=== PATIENT | female | born 1990 | race African-American/Black ===

== ENCOUNTER 2024-01-24 05:37 | Emergency (ER) | payer OTHER, SELFPAY ==
--- NOTE | ~2024-01-24 | XR_ITS ---
EXAMINATION: XR CHEST CLINICAL INFORMATION: Cough COMPARISON: None available. TECHNIQUE: 2 views of the chest were obtained. FINDINGS: No significant abnormality is noted involving the heart, lungs, mediastinum, bony thorax or soft tissues. XR/XR chest 2V IMPRESSION: Unremarkable examination.
[2024-01-24 05:38] VITALS: BP 128/68; PULSE 77; RESP 19; TEMP 36.8; O2SAT 99; BMI 38.4
[2024-01-24 06:01] LABS: IDNOW Serial# 08D9AD1C; Strep A Nucleic Acid Negative (Negative)
--- OUTSIDE RECORDS SUMMARY | 2024-01-24 06:21 | XMS_ITS | Continuity of Care Document ---
Author Organization [facility] Address [address] [place] [address]- Care Team Providers Care Dialysis Registered Nurse Name Role Phone Not on Staff, PCP Primary Care Physician Unavail able Encounter [facility] [place] Date(s): 06/19/20 - 08/19/[address] [address] Discharge Disposition: A-D/C Home Attending Physician: Ale Fields Admitting Physician: Ale Fields Referring Physician: Ale Fields Allergies, Adverse Reactions, Alerts Substance Reaction Severity Status NKA Active Immunizations Given and Recorded Vaccine Date Status Refusal Reason tetanus/diphtheria/pertussis, acel(Tdap) 01/14/14 Given Meningococcal Conjugate Vaccine 1 09/30/07 Given Hepatitis B Vaccine (old term) 08/08/04 Given Hepatitis B Vaccine (old term) 06/16/04 Given tetanus-diphtheria toxoids (Td) 04/08/02 Given 1Admin Note: menactra Medications ibuprofen 600 mg oral tablet 600 mg, 1, tablet, By Mouth, Every 6 hours, # 30 tablet, Refills 0, Tot. Refills 0, Maintenance, 01/09/18 23:08:52 EDT, Print Requisition Start Date: 01/09/18 Status: Ordered lidocaine 5% topical film 1 patch, Topically, Daily, remove patches after 12 hours, # 30 patch, 0 Refills, Maintenance, 06/14/20 23:10:00 EST, [facility]/pharmacy #[id number], Partial fill upon patient request if the prescription is for aschedule II opioid drug., 1 patch Topically Daily,x... Start Date: 06/14/20 Stop Date: 07/14/20 Status: Ordered omeprazole 20 mg oral delayed release tablet 1 tablet = 20 mg, By Mouth, Daily, # 14 tablet, 0 Refills, Maintenance, 07/11/20 23:36:00 EST, EC Tablet, [id number], Partial fill upon patient request if the prescription is for a schedule II opioid drug., 127, kg, 07/11/20 19:05:00 EST, Dry... Start Date: 07/11/20 Stop Date: 07/25/20 Status: Ordered Provera 10 mg oral tablet 10, mg, 1, tablet, By Mouth, Daily, 10, tablet, 0, 0, 09/30/07 14:12:26, Print RAGINI Number, [id number], Constant Indicator Start Date: 09/30/07 Stop Date: 10/10/07 Status: Ordered Zofran 4 mg oral tablet 1 tablet = 4 mg, By Mouth, Every 8 hours, # 12 tablet, 0 Refills, Maintenance, 07/11/20 23:35:00 EST, Tablet, [facility]/pharmacy #[id number], Partial fill upon patient request if the prescription is for a schedule II opioid drug., 127, kg, 07/11/20 19:05:00 EST,... Start Date: 07/11/20 Status: Ordered Problem List Condition Effective Dates Status Health Status Inform ant Anxiety and depression(Confirmed) Active Bipolar disorder(Confirmed) Active
--- OUTSIDE RECORDS SUMMARY | 2024-01-24 06:21 | XMS_ITS | Continuity of Care Document ---
Author Organization [facility] Address [address] [place] [address]- Care Team Providers Care Orchid Hand Name Role Phone Not on Staff, PCP Primary Care Physician Unavail able Encounter [facility] Date(s): 06/14/20 - 06/15/[address] [address]- Encounter Diagnosis Lumbar back pain(Final) - 06/15/20 Discharge Disposition: A-D/C Home Attending Physician: Kulwant Ramirez MD Admitting Physician: Kulwant Ramirez MD Referring Physician: Not on Staff, Referring MD Allergies, Adverse Reactions, Alerts Substance Reaction Severity Status NKA Active Immunizations Given and Recorded Vaccine Date Status Refusal Reason tetanus/diphtheria/pertussis, acel(Tdap) 01/14/14 Given Meningococcal Conjugate Vaccine 1 09/30/07 Given Hepatitis B Vaccine (old term) 08/08/04 Given Hepatitis B Vaccine (old term) 06/16/04 Given tetanus-diphtheria toxoids (Td) 04/08/02 Given 1Admin Note: menactra Medications acetaminophen 325 mg oral tablet 650 mg, 2, tablet, By Mouth, Every 4 hours, PRN, for 5 days, not to exceed 4000 mg/day, # 50 tablet, Refills 0, Tot. Refills 0, Acute 06/19/20 23:10:00 EST, as needed for pain, 06/14/20 23:10:00 EST,Route to Pharmacy Electronically, [facility]/pharmacy #[id number]... Start Date: 06/14/20 Stop Date: 06/19/20 Status: Ordered cyclobenzaprine 10 mg oral tablet 10 mg, Tablet, By Mouth, Once, STAT, 06/14/20 21:17:00 EST, Stop date 06/14/20 21:17:00 EST Start Date: 06/14/20 Stop Date: 06/14/20 Status: Completed cyclobenzaprine 7.5 mg oral tablet 1 tablet = 7.5 mg, By Mouth, 3 times a day, PRN for spasm, for 5 days, # 15 tablet, 0 Refills, Acute 06/19/20 23:10:00 EST, 06/14/20 23:10:00 EST, Tablet, [facility]/pharmacy #[id number], Partial fill upon patient request if the prescription is for a schedule II o... Start Date: 06/14/20 Stop Date: 06/19/20 Status: Ordered ibuprofen 400 mg oral tablet 400 mg, 1, tablet, By Mouth, Every 6 hours, PRN, for 5 days, not to exceed 3200 mg/day, # 50 tablet, Refills 0, Tot. Refills 0, Acute 06/19/20 23:10:00 EST, Pain , Moderate, 06/14/20 23:10:00 EST, Route to Pharmacy Electronically, [facility]/pharmacy #[id number],... Start Date: 06/14/20 Stop Date: 06/19/20 Status: Ordered ibuprofen 600 mg oral tablet 600 mg, 1, tablet, By Mouth, Every 6 hours, # 30 tablet, Refills 0, Tot. Refills 0, Maintenance, 01/09/18 23:08:52 EDT, Print Requisition Start Date: 01/09/18 Status: Ordered lidocaine 5% topical film 1 patch, Topically, Daily, remove patches after 12 hours, # 30 patch, 0 Refills, Maintenance, 06/14/20 23:10:00 EST, [facility]/pharmacy #[id number], Partial fill upon patient request if the prescription is for aschedule II opioid drug., 1 patch Topically Daily,x... Start Date: 06/14/20 Stop Date: 07/14/20 Status: Ordered Provera 10 mg oral tablet 10, mg, 1, tablet, By Mouth, Daily, 10, tablet, 0, 0, 09/30/07 14:12:26, Print RAGINI Number, [id number], Constant Indicator Start Date: 09/30/07 Stop Date: 10/10/07 Status: Ordered Problem List Condition Effective Dates Status Health Status Inform ant Anxiety and depression(Confirmed) Active Bipolar disorder(Confirmed) Active Vital Signs Most recent to oldest [Reference Range]: 1 2 3 Oxygen Saturation [94-100 %] 100 % (06/14/20 11:19 PM) 99 % (06/14/20 8:03 PM) Pulse Rate [55-90 bpm] 79 bpm (06/14/20 11:19 PM) 86 bpm (06/14/20 8:03 PM) Blood Pressure [90-138/55-84 mm Hg] 110/77mm Hg (06/14/20 11:19 PM) 150/76mm Hg *H* (06/14/20 8:03 PM) Respiratory Rate [16-30 br/min] 16 br/min (06/14/20 11:19 PM) 16 br/min (06/14/20 9:51 PM) 24 br/min (06/14/20 8:03 PM) Temperature [96.8-100.4 DegF] 98.1 DegF (06/14/20 11:19 PM) 98.7 DegF (06/14/20 8:03 PM) Mode of Delivery (Oxygen) Room air (06/14/20 11:19 PM) Room air (06/14/20 8:03 PM) Blood pressure sites Arm, right (06/14/20 11:19 PM) Arm, right (06/14/20 8:03 PM) Temperature Route Oral (06/14/20 11:19 PM) Oral (06/14/20 8:03 PM)
--- OUTSIDE RECORDS SUMMARY | 2024-01-24 06:21 | XMS_ITS | Continuity of Care Document ---
Author Organization [facility] ter Address [address] [place] [address]- Care Team Providers Care Signal Technician Name Role Phone Not on Staff, PCP Primary Care Physician Unavail able Encounter [facility] [place] Date(s): 03/01/20 - 03/02/[address] [address]- [facility] Encounter Diagnosis Suspected COVID-19 virus infection(Final) - 03/02/20 Discharge Disposition: A-D/C Home Attending Physician: Jamal Costa DO Admitting Physician: Jamal Costa DO Referring Physician: Not on Staff, Referring MD [...] Print Requisition Start Date: 01/09/18 Status: Ordered Provera 10 mg oral tablet 10, mg, 1, tablet, By Mouth, Daily, 10, tablet, 0, 0, 09/30/07 14:12:26, Print RAGINI Number, [id number], Constant Indicator Start Date: 09/30/07 Stop Date: 10/10/07 Status: Ordered Problem List Condition Effective Dates Status Health Status Inform ant Anxiety and depression(Confirmed) Active Bipolar disorder(Confirmed) Active Results Radiology Reports * Exam Date Time Procedure Performing Provider Status 03/02/20 12:47 AM Chest 2 Views Frontal and Lat Nicole Suh; Auth (Verified) Notes: (Chest 2 Views Frontal and Lat) Reason For Exam: Cough RESULT: Chest 2 Views Frontal and Lat Chest 2 Views Frontal and Lat Hx of Present Illness: Dry hacking ocugh since Thursday and now with chills and chest pain with cough and deep insp since yesterday; Reason: Cough; chest pain COMPARISON: None. FINDINGS: LINES AND TUBES: None. LUNGS AND PLEURA: Clear lungs. Normal pulmonary vascularity. No pleural effusion. No pneumothorax. HEART, MEDIASTINUM AND RADHA: Heart is normal in size. Normal mediastinal and hilar contour. BONES AND SOFT TISSUES: No acute abnormality. IMPRESSION: No acute abnormality. WSN: [id number] Ordering Physician: Artemio Warner Dictated By: Moose Blanco MD Dictated Date/Time: 03/02/20 7:54 am Reviewed By: Moose Blanco MD Signed By: Moose Blanco MD Signed Date/Time: 03/02/20 7:54 am Transcribed By: JOSETTE Transcribed Date/Time: 03/02/20 7:53 am Vital Signs Most recent to oldest [Reference Range]: 1 2 3 Oxygen Saturation [94-100 %] 98 % (03/02/20 2:13 PM) 95 % (03/02/20 12:10 PM) 98 % (03/02/20 5:40 AM) Pulse Rate [55-90 bpm] 67 bpm (03/02/20 2:13 PM) 61 bpm (03/02/20 12:10 PM) 86 bpm (03/02/20 5:40 AM) Blood Pressure [90-138/55-84 mm Hg] 108/65mm Hg (03/02/20 2:13 PM) 101/62mm Hg (03/02/20 12:10 PM) 127/76mm Hg (03/02/20 5:40 AM) Respiratory Rate [16-30 br/min] 18 br/min (03/02/20 2:13 PM) 18 br/min (03/02/20 12:10 PM) 16 br/min (03/02/20 5:40 AM) Temperature [96.8-100.4 DegF] 98.6 DegF (03/02/20 12:10 PM) 98.5 DegF (03/02/20 5:40 AM) 98.2 DegF (03/02/20 2:47 AM) Mode of Delivery (Oxygen) Room air (03/02/20 2:13 PM) Room air (03/02/20 12:10 PM) Room air (03/02/20 5:40 AM) Blood pressure sites Arm, right (03/02/20 12:10 PM) Arm, right (03/02/20 5:40 AM) Arm, right (03/02/20 2:47 AM) Temperature Route Oral (03/02/20 12:10 PM) Oral (03/02/20 5:40 AM) Oral (03/02/20 2:47 AM)
--- OUTSIDE RECORDS SUMMARY | 2024-01-24 06:21 | XMS_ITS | Continuity of Care Document ---
Author Organization [facility] Address [address] [place] [address]- Care Team Providers Care Hat Cleaner Name Role Phone Not on Staff, PCP Primary Care Physician Unavail able Encounter [facility] Date(s): 07/03/22 - 08/02/22 [facility] [address] [place] [id number] Attending Physician: Caroline Burton Admitting Physician: Caroline Burton Referring Physician: Caroline Burton Allergies, Adverse Reactions, Alerts No Known Allergies Immunizations Given and Recorded Vaccine Date Status Refusal Reason tetanus/diphtheria/pertussis, acel(Tdap) 01/14/14 Given Meningococcal Conjugate Vaccine 1 09/30/07 Given Hepatitis B Vaccine (old term) 08/08/04 Given Hepatitis B Vaccine (old term) 06/16/04 Given tetanus-diphtheria toxoids (Td) 04/08/02 Given 1Admin Note: menactra Medications acetaminophen 325 mg oral capsule 2 capsule = 650 mg, By Mouth, Every 4 hours, PRN as needed for pain, # 30 capsule, 0 Refills, Maintenance, 01/19/21 23:50:00 EDT, Capsule, [id number], Partial fill upon patient request if theprescription is for a schedule II opioid drug., 127... Start Date: 01/19/21 Status: Ordered ibuprofen 200 mg oral capsule 2 capsule = 400 mg, By Mouth, Every 6 hours, PRN for pain, # 30 capsule, 0 Refills, Maintenance, 01/19/21 23:48:00 EDT, Capsule, [id number], Partial fill upon patient request if the prescription is for a schedule II opioid drug., 127, kg, 06/16... Start Date: 01/19/21 Status: Ordered ibuprofen 600 mg oral tablet 600 mg, 1, tablet, By Mouth, Every 6 hours, # 30 tablet, Refills 0, Tot. Refills 0, Maintenance, 01/09/18 23:08:52 EDT, Print Requisition Start Date: 01/09/18 Status: Ordered lidocaine 5% topical film 1 patch, Topically, Daily, remove patches after 12 hours, # 30 patch, 0 Refills, Maintenance, 06/14/20 23:10:00 EST, [id number], Partial fill upon patient request [...] 0, 0, 09/30/07 14:12:26, Print RAGINI Number, [id number], Constant Indicator Start Date: 09/30/07 Stop Date: 10/10/07 Status: Ordered Zofran 4 mg oral tablet 1 tablet = 4 mg, By Mouth, Every 8 hours, # 12 tablet, 0 Refills, Maintenance, 07/11/20 23:35:00 EST, Tablet, [id number], Partial fill upon patient request if the prescription is for a schedule II opioid drug., 127, kg, 07/11/20 19:05:00 EST,... Start Date: 07/11/20 Status: Ordered Problem List Condition Confirmation Course Effective Dates Status Health St atus Informant Anxiety and depression Confirmed Active Bipolar disorder Confirmed Active Social History Social History Type Response Smoking Status Smoker, current stat us unknown entered on: 04/07/21 Sex Patient Care team information Care Team Personnel Name: Not on Staff, PCP Position: S Physician (General Medicine) Member Role: PCP Care Team Related Persons Name: CHERELLE EGAN Address: home [address] [address] Name: MAN SUAREZ Name: HEALTH, SERVICES Address: [address] [place] [address] Name: REID HAN Address: home [address] [place] [address]
--- OUTSIDE RECORDS SUMMARY | 2024-01-24 06:22 | XMS_ITS | Continuity of Care Document ---
Author Organization [facility] Address [address] [place] [address]- Care Team Providers Care Head Of Stock Name Role Phone Not on Staff, PCP Primary Care Physician Unavail able [place] [facility] [place] 08/02/22 [facility] [address] [place] [address]- Encounter Diagnosis Anxiety and depression(Discharge Diagnosis) - 07/03/22 Bipolar disorder(Discharge Diagnosis) - 07/03/22 Health care maintenance(Discharge Diagnosis) - 07/03/22 Attending Physician: Not on Staff, Attending MD Allergies, Adverse Reactions, Alerts No Known Allergies [...] Refills, Maintenance, 01/19/21 23:50:00 EDT, Capsule, [id number], Partial fill upon patient request if theprescription [...] 0, 0, 09/30/07 14:12:26, Print RAGINI Number, [id number], Constant Indicator Start Date: 09/30/07 Stop Date: [...] depression Confirmed Active Bipolar disorder Confirmed Active Diagnosis Diagnosis Type Effective Dates Health Status Clinical Service Informant Anxiety and depression Discharge Diagnosis 07/03/22 Bipolar disorder Discharge Diagnosis 07/03/22 Health care maintenance Discharge Diagnosis 07/03/22 Social History Social History Type Response Smoking Status Smoker, current stat us unknown entered on: 04/07/21 Sex Patient Care team information Care Team Personnel Name: Not on Staff, PCP Position: S Physician (General Medicine) Member Role: PCP Care Team Related Persons Name: CHERELLE EGAN Address: home [address] [address] Name: MAN SUAREZ Name: HEALTH, SERVICES Address: [address] [place] [address] Name: REID HAN Address: home [address] [place] [address]
--- OUTSIDE RECORDS SUMMARY | 2024-01-24 06:22 | XMS_ITS | Continuity of Care Document ---
Author Organization [facility] ter Address [address] [place] [address]- Care Team Providers Care Employee Relations Specialist Name Role Phone Not on Staff, PCP Primary Care Physician Unavail able [place] [facility] [place] - 04/08/[address] [address]- Discharge Disposition: A-D/C Home Attending Physician: Naty Flaherty DO Admitting Physician: Naty Flaherty DO Referring Physician: Not on Staff, Referring [...] a schedule II opioid drug., 127, kg, /2... Start Date: 01/19/21 Status: Ordered ibuprofen 600 mg oral tablet 600 mg, 1, tablet, By Mouth, Every 6 hours, # 30 tablet, Refills 0, Tot. Refills 0, Maintenance, 01/09/18 23:08:52 EDT, Print Requisition Start Date: 01/09/18 Status: Ordered lidocaine 5% topical film 1 patch, Topically, Daily, remove patches after 12 hours, # 30 patch, 0 Refills, Maintenance, 06/14/20 23:10:00 EST, [facility]/pharmacy #[id number], Partial fill upon patient request if the prescription is for aschedule II opioid drug., 1 patch Topically Daily,x... Start Date: 06/14/20 Stop Date: 07/14/20 Status: Ordered Macrobid macrocrystals-monohydrate 100 mg oral capsule 1 capsule = 100 mg, By Mouth, 2 times a day, for 7 days, # 14 capsule, 0 Refills, Acute 04/15/21 6:21:00 EDT, 04/08/21 6:21:00 EDT, Capsule, [facility]/pharmacy #[id number], Partial fill upon patient request if the prescription is for a schedule II opioid drug., 1... Start Date: 04/08/21 Stop Date: 04/15/21 Status: Ordered omeprazole 20 mg oral delayed release tablet 1 tablet = 20 mg, By Mouth, Daily, # 14 tablet, 0 Refills, Maintenance, 07/11/20 23:36:00 EST, EC Tablet, [facility]/pharmacy #[id number], Partial fill upon patient request if the prescription is for a schedule II opioid drug., 127, kg, 07/11/20 19:05:00 EST, Dry... Start Date: 07/11/20 Stop Date: 07/25/20 Status: Ordered Provera 10 mg oral tablet 10, mg, 1, tablet, By Mouth, Daily, 10, tablet, 0, 0, 09/30/07 14:12:26, Print RAGINI Number, [id number], Constant Indicator Start Date: 09/30/07 Stop Date: 10/10/07 Status: Ordered Toradol Inj 10 mg, Injection, IV Push Slowly, Once, STAT, 04/08/21 2:35:00 EDT, Stop date 04/08/21 2:35:00 EDT Start Date: 04/08/21 Stop Date: 04/08/21 Status: Completed Zofran 4 mg oral tablet 1 tablet = 4 mg, By Mouth, Every 8 hours, # 12 tablet, 0 Refills, Maintenance, 07/11/20 23:35:00 EST, Tablet, [facility]/pharmacy #[id number], Partial fill upon patient request if the prescription is for a schedule II opioid drug., 127, kg, 07/11/20 19:05:00 EST,... Start Date: 07/11/20 Status: Ordered Zofran 4 mg oral tablet 1 tablet = 4 mg, By Mouth, Every 8 hours, PRN as needed for nausea/vomiting, # 10 tablet, 0 Refills, Maintenance, 01/19/21 23:47:00 EDT, Tablet, [id number], Partial fill upon patient request if the prescription is for a schedule II opioid drug... Start Date: 01/19/21 Status: Ordered Problem List Condition Effective Dates Status Health Status Inform ant Anxiety and depression(Confirmed) Active Bipolar disorder(Confirmed) Active Vital Signs Most recent to oldest [Reference Range]: 1 2 3 Height 170 cm (04/08/21 6:30 AM) 170 cm (04/08/21 1:41 AM) 170 cm (04/07/21 5:06 PM) Oxygen Saturation [94-100 %] 100 % (04/08/21 6:30 AM) 100 % (04/08/21 1:41 AM) 94 % (04/08/21 12:41 AM) Pulse Rate [55-90 bpm] 73 bpm (04/08/21 6:30 AM) 63 bpm (04/08/21 1:41 AM) 83 bpm (04/08/21 12:41 AM) Blood Pressure [90-138/55-84 mm Hg] 126/77mm Hg (04/08/21 6:30 AM) 140/57mm Hg *H* (04/08/21 1:41 AM) 137/87mm Hg (04/08/21 12:41 AM) Respiratory Rate [16-30 br/min] 20 br/min (04/08/21 6:30 AM) 20 br/min (04/08/21 3:55 AM) 20 br/min (04/08/21 1:41 AM) Temperature [96.8-100.4 DegF] 97.3 DegF (04/08/21 6:30 AM) 97.6 DegF (04/08/21 1:41 AM) 98.5 DegF (04/08/21 12:41 AM) Mode of Delivery (Oxygen) Room air (04/08/21 6:30 AM) Room air (04/08/21 1:41 AM) Room air (04/08/21 12:41 AM) Blood pressure sites Arm, right (04/08/21 6:30 AM) Arm, right (04/08/21 1:41 AM) Arm, right (04/08/21 12:41 AM) Temperature Route Oral (04/08/21 6:30 AM) Oral (04/08/21 1:41 AM) Oral (04/08/21 12:41 AM) Social History Social History Type Response Smoking Status Smoker, current stat us unknown entered on: 04/07/21 Sex
--- OUTSIDE RECORDS SUMMARY | 2024-01-24 06:22 | XMS_ITS | Continuity of Care Document ---
Author Organization [facility] ter Address [address] [place] [address]- Care Team Providers Care Lighting Fixtures Decorator Name Role Phone Not on Staff, PCP Primary Care Physician Unavail able Encounter [facility] Date(s): 01/19/21 - 01/20/[address] [address]- Encounter Diagnosis Viral syndrome(Final) - 01/20/21 Discharge Disposition: A-D/C Home Attending Physician: Ramana Miranda MD Admitting Physician: Ramana Miranda MD Referring Physician: Not on Staff, Referring [...] a schedule II opioid drug., 127, kg, 2... Start Date: 01/19/21 Status: Ordered ibuprofen 600 mg oral tablet 600 mg, 1, tablet, By Mouth, Every 6 hours, # 30 tablet, Refills 0, Tot. Refills 0, Maintenance, 01/09/18 23:08:52 EDT, Print Requisition Start Date: 01/09/18 Status: Ordered lidocaine 5% topical film 1 patch, Topically, Daily, remove patches after 12 hours, # 30 patch, 0 Refills, Maintenance, 06/14/20 23:10:00 EST, [facility]/pharmacy #[id number], Partial fill upon patient request [...] 0, 0, 09/30/07 14:12:26, Print RAGINI Number, [id number], Constant Indicator Start Date: 09/30/07 Stop Date: [...] 3 Oxygen Saturation [94-100 %] 100 % (01/20/21 12:46 AM) 100 % (01/19/21 8:23 PM) 99 % (01/19/21 6:17 PM) Pulse Rate [55-90 bpm] 63 bpm (01/20/21 12:46 AM) 82 bpm (01/19/21 8:23 PM) 99 bpm *H* (01/19/21 6:17 PM) Blood Pressure [90-138/55-84 mm Hg] 125/74mm Hg (01/20/21 12:46 AM) 119/79mm Hg (01/19/21 8:23 PM) 120/75mm Hg (01/19/21 6:17 PM) Respiratory Rate [16-30 br/min] 18 br/min (01/20/21 12:46 AM) 18 br/min (01/19/21 8:23 PM) 16 br/min (01/19/21 6:17 PM) Temperature [96.8-100.4 DegF] 98.4 DegF (01/19/21 8:23 PM) 98.3 DegF (01/19/21 6:17 PM) Mode of Delivery (Oxygen) Room air (01/20/21 12:46 AM) Room air (01/19/21 8:23 PM) Room air (01/19/21 6:17 PM) Blood pressure sites Arm, left (01/20/21 12:46 AM) Arm, right (01/19/21 8:23 PM) Temperature Route Oral (01/19/21 8:23 PM) Oral (01/19/21 6:17 PM)
--- OUTSIDE RECORDS SUMMARY | 2024-01-24 06:22 | XMS_ITS | Continuity of Care Document ---
Author Organization [facility] Address [address] [place] [address]- Care Team Providers Care Engine Setter Name Role Phone Not on Staff, PCP Primary Care Physician Unavail able Encounter [facility] Date(s): 07/04/20 - 08/03/[address] [address] Attending Physician: Caroline Burton Admitting Physician: Caroline Burton Referring Physician: AdmtrCaroline Allergies, Adverse Reactions, Alerts Substance Reaction Severity [...] 0 Refills, Maintenance, 06/14/20 23:10:00 EST, [id number], Partial fill upon patient request if the [...] 0, 0, 09/30/07 14:12:26, Print RAGINI Number, [id number], Constant Indicator Start Date: 09/30/07 Stop Date: 10/10/07 Status: Ordered Zofran 4 mg oral tablet 1 tablet = 4 mg, By Mouth, Every 8 hours, # 12 tablet, 0 Refills, Maintenance, 07/11/20 23:35:00 EST, Tablet, [facility]/pharmacy #[id number], Partial fill upon patient request if the prescription is for a schedule II opioid drug., 127, kg, 07/11/20 19:05:00 EST,... Start Date: 07/11/20 Status: Ordered Problem List Condition Effective Dates Status Health Status Inform ant Anxiety and depression(Confirmed) Active Bipolar disorder(Confirmed) Active
--- OUTSIDE RECORDS SUMMARY | 2024-01-24 06:22 | XMS_ITS | Continuity of Care Document ---
Author Organization [facility] Address [address] [place] [id number]- Care Team Providers Care Head Screen Worker Name Role Phone Not on Staff, PCP Primary Care Physician Unavail able Encounter [facility] [place] Date(s): 07/11/20 - 07/12/[address] [address]- Discharge Disposition: A-D/C Home Attending Physician: Jamal [...] patch, 0 Refills, Maintenance, 06/14/20 23:10:00 EST, [facility]/pharmacy #[id number], Partial fill upon patient request if the prescription is for aschedule II opioid drug., 1 patch Topically Daily,x... Start Date: 06/14/20 Stop Date: 07/14/20 Status: Ordered MorPHINE Inj 2 mg, Injection, IV Push Slowly, Once, STAT, 07/11/20 21:06:00 EST, Stop date 07/11/20 21:06:00 EST Start Date: 07/11/20 Stop Date: 07/11/20 Status: Completed omeprazole 20 mg oral delayed release tablet 1 tablet = 20 mg, By Mouth, Daily, # 14 tablet, 0 Refills, Maintenance, 07/11/20 23:36:00 EST, EC Tablet, [facility]/pharmacy #[id number], Partial fill upon patient request if the prescription is for a schedule II opioid drug., 127, kg, 07/11/20 19:05:00 EST, Dry... Start Date: 07/11/20 Stop Date: 07/25/20 Status: Ordered Provera 10 mg oral tablet 10, mg, 1, tablet, By Mouth, Daily, 10, tablet, 0, 0, 09/30/07 14:12:26, Print RAGINI Number, [id number], Constant Indicator Start Date: 09/30/07 Stop Date: 10/10/07 Status: Ordered Zofran 4 mg oral tablet 1 tablet = 4 mg, By Mouth, Every 8 hours, # 12 tablet, 0 Refills, Maintenance, 07/11/20 23:35:00 EST, Tablet, [facility]/pharmacy #[id number], Partial fill upon patient request if the prescription is for a schedule II opioid drug., 127, kg, 07/11/20 19:05:00 EST,... Start Date: 07/11/20 Status: Ordered Problem List Condition Effective Dates Status Health Status Inform ant Anxiety and depression(Confirmed) Active Bipolar disorder(Confirmed) Active Vital Signs Most recent to oldest [Reference Range]: 1 2 3 Weight 127 kg (07/11/20 7:05 PM) Oxygen Saturation [94-100 %] 100 % (07/11/20 10:47 PM) 99 % (07/11/20 7:05 PM) 100 % (07/11/20 6:49 PM) Pulse Rate [55-90 bpm] 66 bpm (07/11/20 10:47 PM) 70 bpm (07/11/20 7:05 PM) 80 bpm (07/11/20 6:49 PM) Blood Pressure [90-138/55-84 mm Hg] 109/57mm Hg (07/11/20 10:47 PM) 121/64mm Hg (07/11/20 7:05 PM) Respiratory Rate [16-30 br/min] 16 br/min (07/11/20 10:47 PM) 16 br/min (07/11/20 9:12 PM) 20 br/min (07/11/20 7:05 PM) Temperature [96.8-100.4 DegF] 97.9 DegF (07/11/20 7:05 PM) Mode of Delivery (Oxygen) Room air (07/11/20 10:47 PM) Room air (07/11/20 7:05 PM) Temperature Route Oral (07/11/20 7:05 PM) Dry Weight 127 kg (07/11/20 7:05 PM)
--- OUTSIDE RECORDS SUMMARY | 2024-01-24 06:22 | XMS_ITS | Continuity of Care Document ---
Author Organization [facility] Address [address] [place] [id number]- Care Team Providers Care Artificial Intelligence Specialist Name Role Phone Not on Staff, PCP Primary Care Physician Unavail able [place] [facility] [place] - 01/24/[address] [address]- Discharge Disposition: A-D/C Home Attending Physician: Marily Griffin MD Admitting Physician: Marily Griffin MD Referring Physician: Not on Staff, Referring [...] 0, 0, 09/30/07 14:12:26, Print RAGINI Number, [id number], Constant Indicator Start Date: 09/30/07 Stop Date: [...] Exam Date Time Procedure Performing Provider Status 01/24/21 3:51 AM Chest 2 Views Frontal and Lat Nicole Rapp; Auth (Verified) Notes: (Chest 2 Views Frontal and Lat) Reason For Exam: Shortness of Breath, Fever;Other: RESULT: Chest 2 Views Frontal and Lat Chest 2 Views Frontal and Lat Hx of Present Illness: body aches, sore throat, sob, chest pains; Reason: Shortness of Breath, Fever; Clinical Question(s): Pneumonia COMPARISON: March 02, 2020 FINDINGS: LINES AND TUBES: None. LUNGS AND PLEURA: Clear lungs. Normal pulmonary vascularity. No pleural effusion. No pneumothorax. HEART, MEDIASTINUM AND RADHA: Heart is normal in size. Normal upper mediastinal and hilar contour. BONES AND SOFT TISSUES: No acute abnormality. IMPRESSION: No acute abnormality. WSN: [id number] Ordering Physician: Christoph Trivedi Dictated By: Moose Blanco MD Dictated Date/Time: 01/24/21 8:05 am Reviewed By: Moose Blanco MD Signed By: Moose Blanco MD Signed Date/Time: 01/24/21 8:05 am Transcribed By: JOSETTE Transcribed Date/Time: 01/24/21 7:59 am Vital Signs Most recent to oldest [Reference Range]: 1 2 3 Oxygen Saturation [94-100 %] 100 % (01/24/21 8:05 PM) 100 % (01/24/21 7:35 PM) 100 % (01/24/21 4:02 PM) Pulse Rate [55-90 bpm] 71 bpm (01/24/21 8:05 PM) 85 bpm (01/24/21 7:35 PM) 73 bpm (01/24/21 4:02 PM) Blood Pressure [90-138/55-84 mm Hg] 132/80mm Hg (01/24/21 8:05 PM) 128/80mm Hg (01/24/21 7:35 PM) 117/68mm Hg (01/24/21 4:02 PM) Respiratory Rate [16-30 br/min] 22 br/min (01/24/21 8:05 PM) 16 br/min (01/24/21 7:35 PM) 16 br/min (01/24/21 4:02 PM) Temperature [96.8-100.4 DegF] 98.9 DegF (01/24/21 8:05 PM) 98.0 DegF (01/24/21 7:35 PM) 98.5 DegF (01/24/21 4:02 PM) Mode of Delivery (Oxygen) Room air (01/24/21 8:05 PM) Room air (01/24/21 7:35 PM) Room air (01/24/21 4:02 PM) Blood pressure sites Arm, right (01/24/21 8:05 PM) Arm, right (01/24/21 4:02 PM) Arm, right (01/24/21 2:13 AM) Temperature Route Oral (01/24/21 8:05 PM) Oral (01/24/21 7:35 PM) Oral (01/24/21 4:02 PM)
[2024-01-24 06:33] LABS: Influenza A PCR NEGATIVE (Negative); Influenza B PCR NEGATIVE (Negative); Resp Syncy Virus RNA Qual PCR NEGATIVE (Negative); SARS COV2 PCR INHOUSE POSITIVE (Negative)
--- NOTE | 2024-01-24 06:33 | ED.GENADULT ---
HPI - General Adult General Chief complaint: Upper Respiratory Symptoms Stated complaint: gen med Time Seen by Provider: 01/24/24 06:30 Source: patient Mode of arrival: ambulatory Limitations: no limitations History of Present Illness ED Provider: Nia Mauricio PA-C HPI narrative: Patient is a 33 year old assigned female at with no reported medical history presenting to the emergency department today with a sore throat and cough. Patient states that over the last 2 days she has had a sore throat and cough. Patient denies any dizziness, lightheadedness, abdominal pain, nausea, vomiting, fever, chills, blurry vision, double vision, loss of vision, chest pain, difficulty breathing, shortness of breath, back pain, night sweats, pain with urination, increased urinary frequency, increased urinary urgency, blood in her urine or stool, syncope or a near syncopal episode, recent trauma or falls, bowel incontinence, bladder incontinence, or any other complaints at this time. Onset (ago): day(s) (2) Relieving factors: none Exacerbating factors: none Associated symptoms: cough Treatments prior to arrival: none Related Data Allergies Allergy/AdvReac Type Severity Reaction Status Date / Time No Known Allergies Allergy Verified 01/24/24 05:42 [No Known Allergies*] Review of Systems Constitutional: Constitutional: Reports no additional constitutional complaints, Denies chills, Denies fever(s) and Denies night sweats Eyes: Eyes: Reports no additional eye complaints, Denies blurry vision, Denies change in vision, Denies diplopia, Denies eye discharge, Denies loss of vision and Denies eye pain ENT: Denies dizziness and Reports sore throat Cardiovascular: Cardiovascular: Reports no additional cardiovascular complaints, Denies chest pain, Denies lightheadedness, Denies Loss of Consciousness and Denies dyspnea Respiratory: Respiratory: Reports no additional respiratory complaints, Reports cough and Denies dyspnea Gastrointestinal: Gastrointestinal: Reports no additional gastrointestinal complaints, Denies abdominal pain, Denies melena, Denies hematochezia, Denies change in bowel habits and Denies change in stool character Genitourinary: Genitourinary: Denies hematuria, Denies urinary frequency, Denies dysuria, Denies urinary incontinence, Denies urinary hesitancy and Denies urinary urgency Musculoskeletal: Musculoskeletal: Reports no additional musculoskeletal complaints, Denies numbness and Denies tingling Neurologic: Denies dizziness, Denies loss of vision, Denies numbness and Denies tingling Psychiatric: Psychiatric: Reports no additional psychiatric complaints Endocrine: Endocrine: Reports no additional endocrine complaints Hematologic/Lymphatic: Hematologic/Lymphatic: Reports no additional hematologic/lymphatic complaints Allergic/Immunologic: Allergic/Immunologic: Reports no additional allergic/immunologic complaints [facility] Past Medical History Attestation statement: The following information was validated with the patient. Source: old records reviewed and nursing notes reviewed Social History Social History Advance Directives: No Advance Directives Information Provided: No Do you have a plan to hurt others: No Plan Physical Exam ED Vital Signs: Vital Signs - 24 hr 01/24/24 05:38 01/24/24 06:13 01/24/24 08:07 Temperature 98.3 F 98 F Pulse Rate 77 60 Respiratory Rate 19 16 Blood Pressure 128/68 105/70 Pulse Oximetry 99 100 Oxygen Delivery Method Room Air Room Air Room Air 01/24/24 08:21 Temperature 98 F Pulse Rate 60 Respiratory Rate 16 Blood Pressure 105/70 Pulse Oximetry 100 Oxygen Delivery Method Room Air BMI result Body Mass Index 38.4 Const General: cooperative, no acute distress, alert and awake Nutritional Appearance: well nourished Orientation/consciousness: patient oriented x3 Limitations: no limitations HENMT Head: Yes normal to inspection and Yes atraumatic Ears: hearing grossly normal bilaterally and external ears normal General nose exam: Normal external nose present, no nasal discharge noted and no epistaxis Face and sinus: Yes normal facial exam, No abrasion and No laceration Mouth: Normal oral and palatal mucosa present, no drooling and no muffled voice Eyes General: appearance normal, both eyes and all related structures Periorbital: periorbital findings normal Eyelids: Yes eyelids normal Conjunctivae: conjunctivae normal Pupils: Equal, round and reactive pupils present EOM: EOMs intact bilaterally Neck Neck: Yes normal visual inspection, Yes full ROM and Yes no lymphadenopathy Chest Chest palpation & inspection: normal inspection of the chest Resp Effort & Inspection: normal respiratory effort and able to speak in complete sentences GI Inspection: Yes normal to inspection Neuro General: patient oriented x3 and moves all extremities Cranial nerves: Yes Equal, round and reactive pupils present Cognition (Neuro): normal cognition Extrem General: Yes normal to inspection, Yes full ROM and Yes capillary refill normal Psych Appearance: grossly normal Mental Status: mental status grossly normal Affect: normal affect Attitude: cooperative Thought process: Normal thought process present Thought content: Normal thought content present Insight: Good insight present (Psych) Medical Decision Making Medical Decision Making [facility] Narrative: Patient is a 33 year old assigned female at with no reported medical history presenting to the emergency department today with a sore throat and cough. Patient's physical exam was unremarkable. Patient's COVID-19 test was positive. Patient's chest x-ray showed no acute process. I explained my physical exam findings as well as all test results to the patient. I answered all questions asked by the patient. I stressed the importance of the patient taking her medication as directed (either prescribed or as the over the counter packaging recommends). I stressed the importance of the patient following up with her primary care provider. I stressed the importance of the patient returning to the emergency department immediately if her symptoms were to worsen or if she were to develop any dizziness, shortness of breath, difficulty breathing, chest pain, blurry vision, loss of vision, nausea, vomiting, abdominal pain, fever, chills, back pain, or any other complaints. Patient verbalized agreement and understanding with this treatment plan and discharge. Differential Diagnosis Differential Diagnoses: The differential diagnosis associated with the presentation includes COVID-19 Influenza RSV Admission/Observation Consideration of admission/observation: Escalation of care including admission/observation considered Patient would have been admitted to the hospital had her work up had any findings where hospital admission was appropriate and her clinical presentation warranted hospital admission. Lab Data [facility] Lab Attestation statement: I reviewed the patient's lab results. My interpretation of these results are in the [facility] Rationale portion of this note. Labs: Lab Results 01/24/24 Range/Units 05:46 Influenza Type A (PCR) NEGATIVE (Negative) Influenza Type B (PCR) NEGATIVE (Negative) RSV RNA Qual (PCR) NEGATIVE (Negative) SARS-CoV-2 RNA (RT-PCR) POSITIVE A (Negative) S. pyogenes GrpA JAYA Negative (Negative) Independent Interpretation I performed an independent interpretation of an: Plain X-Ray Interpretation: My interpretation is in agreement with the radiologist's impression of this imaging study. EXAMINATION: XR CHEST CLINICAL INFORMATION: Cough COMPARISON: None available. TECHNIQUE: 2 views of the chest were obtained. FINDINGS: No significant abnormality is noted involving the heart, lungs, mediastinum, bony thorax or soft tissues. XR/XR chest 2V IMPRESSION: Unremarkable examination. Dictated By: Kulwnat Mora MD Signed By: Electronically signed by Kulwant Mora MD 01/24/24 0724 Radiology Impression Discussion of test interpretation with radiology: I have reviewed the radiologist's reading. Discharge Plan Discharge Clinical Impression: COVID-19 Patient Disposition: Home, Self-Care Instructions: COVID-19 (Coronavirus Disease 2019) (ED) Additional Instructions: Follow up with your primary care provider. Return to the emergency department immediately if your symptoms worsen or if you develop any dizziness, shortness of breath, difficulty breathing, chest pain, blurry vision, loss of vision, nausea, vomiting, abdominal pain, fever, chills, back pain, or any other complaints. Referrals: [facility] [place] Family Medicine [Provider Group] (Call to establish and follow up with a primary care provider. If you already have a primary care provider, please follow up with them.) [facility] [Provider Group] [facility] [place] [facility] [Provider Group] Stand Alone Forms: Work/School Release Interventions: ED Discharge Assessment Last Done: 01/24/24 08:21 Discharge Date/Time: 01/24/24 08:21 Print Language: [place] Timorese
--- NOTE | 2024-01-24 06:56 | PC.NURSE ---
Handoff report to Marleny EUGENE.
[2024-01-24 08:07] VITALS: BP 105/70; PULSE 60; RESP 16; TEMP 36.6; O2SAT 100
[2024-01-24 08:21] VITALS: BP 105/70; PULSE 60; RESP 16; TEMP 36.6; O2SAT 100
== END 2024-01-24 08:21 | disposition home or self-care (01) ==
PROVIDERS: Emergency Provider Emergency Medicine
DX: U07.1 COVID-19 (principal); J02.9 Acute pharyngitis, unspecified; R05.9 Cough, unspecified
CPT/HCPCS: 0241U; 71046; 87651; 99283; 99284

== ENCOUNTER 2025-05-11 20:31 | Emergency (ER) | payer OTHER, SELFPAY ==
--- NOTE | 2025-05-11 20:32 | ED_ITS ---
HPI - General Adult General Chief complaint: Back Pain/Injury Stated complaint: Back Pain/Lower back pain Time Seen by Provider: 05/11/25 20:35 Source: patient, RN notes reviewed and old records reviewed Mode of arrival: ambulatory Limitations: no limitations History of Present Illness ED Provider: Bernadette [facility] narrative: Patient is a 35year old female presenting with complaint of left lower back pain since Thursday. Radiating down left leg. Denies fall or other trauma. Denies saddle anesthesia or bowel/bladder incontinence. Denies any history of IVDU. Denies fevers. Has tried ibuprofen, naproxen, topical lidocaine without relief. complaint: back pain Onset (ago): day(s) Related Data Previous Rx's ?Medication ?Instructions ?Recorded cyclobenzaprine 10 mg tablet 10 mg PO TID PRN muscle s pasm #10 05/11/25 tabs prednisone 10 mg tablet See Rx Instructions .Route 1 07/11/24 .COMPLEX #15 tabs Allergies Allergy/AdvReac Type Severity Reaction Status Date / Time No Known Allergies (No Known Allergy Verified 05/11/25 20:34 Allergies*) Review of Systems Review of Systems: As per HPI Yes all other systems are reviewed and are negative Constitutional: Constitutional: Reports as per HPI Physical Exam ED Vital Signs: Vital Signs - 24 hr 05/11/25 20:34 Temperature 98.6 F Pulse Rate 78 Respiratory Rate 16 Blood Pressure 128/77 Pulse Oximetry 98 Oxygen Delivery Method Room Air BMI result Body Mass Index 38.4 Vital signs have been reviewed and appear to be correct. Blood pressure normal. Heart rate normal. Respiratory rate normal. Temperature normal. Oxygen saturation normal. Const General: cooperative, healthy appearing and no acute distress Orientation/consciousness: oriented to person, oriented to place, oriented to time and patient oriented x3 Limitations: no limitations HENMT Head: Yes normocephalic and Yes atraumatic Ears: external ears normal General nose exam: Normal external nose present Face and sinus: Yes face symmetric Mouth: oropharynx normal and moist mucous membranes Throat: Yes uvula midline Eyes Pupils: Equal, round and reactive pupils present Neck Neck: Yes normal visual inspection and Yes supple Resp Effort & Inspection: normal respiratory effort and able to speak in complete sentences Auscultation: clear to auscultation bilaterally Cardio Rate: regular rate Rhythm: regular rhythm Heart sounds: S1 normal heart sound present and S2 normal heart sound present GI Palpation (GI): Soft to palpation and nontender Auscultation: normoactive bowel sounds General: Yes no CVA tenderness Back/Spine/Pelvis Back: no CVA tenderness Thoracic/Lumbar Spine: thoracic and lumbar spine normal to inspection, thoraco- lumbar ROM normal, straight leg raise negative bilaterally, pain with thoraco- lumbar ROM, No thoracic spinal tenderness and No lumbar spinal tenderness Skin General skin exam: elasticity normal and turgor normal Neuro General: oriented to person, oriented to place, oriented to time, patient oriented x3, moves all extremities, no focal motor deficits and CN's II-XI intact bilaterally Cranial nerves: Yes Equal, round and reactive pupils present Cognition (Neuro): normal cognition Extrem General: Yes full ROM, Yes no pedal edema and Yes no calf tenderness Psych Mental Status: mental status grossly normal Affect: normal affect Thought process: Normal thought process present Medical Decision Making Medical Decision Making [facility] Narrative: Patient is a 35year old female presenting with complaint of left lower back pain since Thursday. On exam patient is awake, A+Ox3, VS WNL, afebrile, normal neurological exam without focal deficits, physical exam findings as above. Given reported symptoms and physical exam findings, initial differential includes but is not limited to initial differential includes lumbar strain, lumbar radiculopathy, degenerative disc disease, disc herniation, spinal stenosis, spondylosis. Less likely vertebral fracture. Do not suspect malignancy/mass, SEA, cauda equina/cord compression. Imaging not indicated as patient denies traumatic injury. No red flag findings on physical exam. Will treat with course of prednisone and flexeril. Patient has appt with new PCP in June. Discussed that if symptoms continue, should follow up with PCP. Return precautions discussed. Patient verbalized understanding of and agreement with plan. Differential Diagnosis Differential Diagnoses: The differential diagnosis associated with the presentation includes as per [facility] [place] External Record Review External record reviewed: Inpatient record, Office record and Outpatient record Prescription Management I considered prescription management with: Other Discharge Plan Discharge Clinical Impression: Acute lumbar radiculopathy Patient Disposition: Home, Self-Care Instructions: Lumbar Radiculopathy (ED) Additional Instructions: You were evaluated in the emergency department today for lower back pain. This is likely due to an inflammation of the sciatic nerve with runs from the lower back down both legs. You are being prescribed a course of prednisone which is a steroid to decrease inflammation. You are also being prescribed cyclobenzaprine which is a muscle relaxer. Do not take this in combination with alcohol as it can cause excessive drowsiness. Use all medications as prescribed. Please schedule an appointment for follow-up with your primary care physician this week for further evaluation of your symptoms. Return to the emergency department if you experience worsening back pain, difficulty walking, fevers, numbness, tingling, incontinence, groin numbness or tingling, or any other concerning symptoms. Prescriptions: New prednisone 10 mg tablet See Rx Instructions .ROUTE .COMPLEX Qty: 15 0RF Rx Instructions: 50mg (5 tabs) x1 day, then 40 mg (4 tabs) x1 day, then 30 mg (3 tabs) x1 day, then 20 mg (2 tabs) times 1 day, then 10 mg (1 tab) x1 day cyclobenzaprine 10 mg tablet 10 mg PO TID PRN (Reason: muscle spasm) Qty: 10 0RF Print Language: Tanzanian
[2025-05-11 20:34] VITALS: BP 128/77; PULSE 78; RESP 16; TEMP 37; O2SAT 98; BMI 38.4
[2025-05-11 20:41] VITALS: BP 128/77; PULSE 78; RESP 16; TEMP 37; O2SAT 98
--- OUTSIDE RECORDS SUMMARY | 2025-05-11 20:44 | XMS_ITS | Data Portability ---
Author Organization CANDY Connolly s [address] Address [address] [place] [address] Assessment No assessment recorded. Plan of Treatment Reminders Order Date Submit Date Provider Last Modified By Organization Details Last Modified Time Details Appointments None recorded. Lab None recorded. Referral physical therapist referral - on/off back pain with radiation to left leg. Need PT 3x/week x 4 weeks. need evaluation and treatment. 2022 023 [email or web address] 26 [facility] - Kim - Amita Sandy, [address] [facility] , [address], [place], [address], 3 11:38:05 Procedures None recorded. Surgeries None recorded. Imaging None recorded. Medication Orders prednisone 20 mg tablet 2022 023 [facility] #[id number], [address] [place], [address], 3 11:01:19 cyclobenzap rine 10 mg tablet 2022 023 [facility] #[id number], [address] [place], [address], 3 11:01:19 Patient TargetsNo targets recorded. Patient Instructions Encounter Date Encounter Id Patient Instructions Last Modified By Organization Details Last Modified Time 07/14/2022 [id number] Drink lots of fluids. Take medications as prescribed. Do not do any activities that exacerbate your pain. Take walks and change positions frequently. Do not lie in bed all day. Light movement is helpful for recovery of the back. Use a heating pad or warm compress on the painful area of the back. A lidocaine patch can be used for topical relief. This is available over the counter. Once pain is improved, do back exercises to stretch and strengthen the back. If you develop severe pain, fevers/chills, weakness of limbs, loss of sensation in groin, or loss of control of bowel or bladder functions call 911 or go to the Emergency Department. [email or web address] Not available 07/14/2022 10:54:52 Reason for Referral Physical Therapist Referral for Lumbago with sciatica on/off back pain with radiation to left leg. Need PT 3x/week x 4 weeks. need evaluation and treatmen on/off back pain with radiation to left leg. Need PT 3x/week x 4 weeks. need evaluation and treatment. Referring Physician: Momo Rocha, Urgent Care, Encounter Date: 07/14/2022 Problems No Known Problems Medical Equipment None Reported. Allergies No known drug allergies Medications Name Sig Start Date Stop Date Status Note LastModified by Organization Details LastModified Time cyclobenzaprine 10 mg tablet Take 1 tablet every day by oral route at bedtime for 20 days. 2022 active Not Available Not Available Not Avai lable prednisone 20 mg tablet Take 2 tablets every day by oral route in the morning for 5 days. 2022 active Not Available Not Available Not Avai lable ibuprofen active Not Available Not Rachel ilable Not Available naproxen active Not Available Not Avai lable Not Available Vitals Date Recorded Body height Body mass index (BMI) Body weight Body temperature Oxygen saturation Heart rate Respiratory rate Systolic And Diastolic Provider Name and Address Organization Details Last Updated DateTime 3 180.34 cm 39.1 kg/m2 187724. 86 g 97 [degF] 96 % 73 /min 18 /min 114/78 mm[Hg] CHRISSY GUPTA - [facility] 3 10:28:17 Social History Question Answer Notes LastModified by Organizat ion Details LastModified Time Tobacco Smoking Status Current Every Day Smoker CHRISSY degroot PA [place] [facility] 07/14/2022 10:26:43 Which Illicit Or Recreational Drugs Have You Used? Marijuana [email or web address] Information not available 07/14/2022 How Much Tobacco Do You Smoke? 0.25 PPD [email or web address] Information not available 07/14/2022 Have You Recently Traveled Abroad? No Information not available 07/14/2022 Sex: Unknown Functional Status Question Answer Note LastModified by Organizat ion Details LastModified Time Do you use any illicit or recreational drugs? Yes [email or web address] Information not available 07/14/2022 What is your level of alcohol consumption? None Information not available 07/14/2022 Mental Status None recorded. Family History Relationship Description Onset Age of this Age Resolved Age Notes LastModified by Organization Details LastModified Time Mother Multiple myeloma [email or web address] Not available 2022 10:25:30 Unspecified Relation Malignant neoplastic disease [email or web address] Not available 2022 10:25:37 Unspecified Relation Depressive disorder [email or web address] Not available 2022 10:25:44 Unspecified Relation Bipolar disorder [email or web address] Not available 2022 10:25:51 Unspecified Relation Autistic disorder [email or web address] Not available 2022 10:25:58 Medical History No medical history recorded. Gynecological HistoryNo gynecological history recorded. Obstetrics History GPAL:G 0 P 0 0 0 0 Past Encounters Encounter ID Performer Location Encounter Start Date Encounter Closed Date Diagnosis/Indication Diagnosis SNOMED-CT Code Diagnosis ICD10 Code Diagnosis IMO Codes Diagnosis Note [id number] [address] [address] [address] [place] [address] 12/24/2019 18:55:34 12/24/2019 19:52:57 [id number] Momo Rocha NP [address] [address] [place] [address] 07/14/2022 08:26:42 07/14/2022 11:03:36 Lumbago with sciatica [id number] M54.42 Health Concerns Section Related Observation LastModified by Organization Detai ls LastModified Time None Recorded Concern Status LastModified by Organization Details LastModified Time None Recorded Advance Directives Directive None Recorded Payers Insurance Date Sequence Insurance Name Policy Number Policy Izquierdo Covered Member ID Izquierdo Member ID Guarantor Name 07/20/2022 1 [place] [facility] Sravanthi Erickson [id number] Sravanthi Bravo 07/21/2022 1 [facility] (MEDICAID HMO) [id number] Sravanthi Garciaandreatracie [id number] Sravanthi Bravo 07/21/2022 1 [facility] (MEDICAID REPLACEMENT - HMO) [id number] Sravanthi Garciaandreatracie [id number] 1 Sravanthi Bravo Notes Date Note Type Note Provider Name and Address Organization Details Recorded Time 07/14/2022 text/html Back Pain/Injury UCReported by PatientHPIFor location, patient reportspain radiating to the buttocksandpain radiating to the legs. For quality, patient reportssharp,tightness , andmuscle spasms. For severity, patient reportspain level 7/10. For aggravating factors, patient reportsbending over/standing up. For associated symptoms, patient reportstingling. For duration, patient reports5 daysand___ months(patient has low back pain x 2 years on/off). For context, patient reportsliftingandprior back problems. For alleviating factors, patient reportsanalgesics,heat , andnsaids. For prior imaging, patient reportsnone. Momo Rocha NP [address] [place], [address], [place] - [facility] 07/14/2022 11:01:37 OBGyn Episode No OBEpisode recorded.
== END 2025-05-11 20:43 | disposition home or self-care (01) ==
LOC: HO.ED 20:42
PROVIDERS: Emergency Provider Emergency Medicine
DX: M54.16 Radiculopathy, lumbar region (principal)
CPT/HCPCS: 99282; 99283

== ENCOUNTER 2025-06-03 02:45 | Emergency (ER) | payer OTHER, SELFPAY ==
--- NOTE | 2025-06-03 | ECG_ITS ---
Test Reason : CHEST PAIN Blood Pressure : */* mmHG Vent. Rate : 85 BPM Atrial Rate : 85 BPM P-R Int : 148 ms QRS Dur : 72 ms QT Int : 364 ms P-R-T Axes : 69 35 -2 degrees QTcB Int : 433 ms Normal sinus rhythm Normal ECG No previous ECGs available Referred By: Generic ED Physician Electronically Signed By: Bryan Handy
--- NOTE | ~2025-06-03 | XR_ITS ---
CLINICAL HISTORY: chest pain 1 view chest x-ray. Comparison: None Findings: The lungs are adequately expanded. No focal consolidation. No effusion or pneumothorax. Cardiac and mediastinal contours are within normal limits. No acute osseous abnormality Impression: No acute process. This document has been electronically signed by: Vamsi Vo MD on 06/03/2025 07:51:27
--- NOTE | ~2025-06-03 | US_ITS ---
CLINICAL HISTORY: upper abdo pain, pls eval for gallstones US abdomen limited, gallbladder only Comparison: None provided Findings: The common duct is 3 mm in diameter. The gallbladder is normal. There is no sonographic Hurst sign. The main portal vein is antegrade. IMPRESSION: No gallstones or evidence of cholecystitis. This document has been electronically signed by: Vamsi Vo MD on 06/03/2025 08:55:17
[2025-06-03 02:47] VITALS: BP 121/73; PULSE 73; RESP 20; TEMP 36.8; O2SAT 98; BMI 37.5
--- OUTSIDE RECORDS SUMMARY | 2025-06-03 03:10 | XMS_ITS | Data Portability ---
Author Organization CANDY Connolly s [address] Address [address] [place] [address] Assessment No assessment recorded. Plan of Treatment [...] Therapy - Kim - Amita Sandy, [address] [facility] , [address], [place], [address], 3 11:38:05 Procedures None recorded. Surgeries None recorded. Imaging None recorded. Medication Orders prednisone [address] [facility]/Pharmacy #[id number], [address] [place], [address], 3 11:01:19 cyclobenzap rine 10 mg tablet [address] [facility] #[id number], [address] [place], [address], 3 11:01:19 Patient TargetsNo targets recorded. Patient Instructions Encounter Date Encounter Id Patient Instructions Last Modified By Organization Details Last Modified Time 07/14/2022 [id number] Drink lots of fluids. Take medications as [...] Updated DateTime 3 180.34 cm 39.1 kg/m2 672744. 86 g 97 [degF] 96 % 73 /min 18 /min 114/78 mm[Hg] CHRISSY GUPTA - [facility] 3 10:28:17 Social History Question Answer Notes LastModified by Organizat ion Details LastModified Time Tobacco Smoking Status Current Every Day Smoker CHRISSY degroot PA [place] [facility] 07/14/2022 10:26:43 Which Illicit Or Recreational Drugs Have You Used? Marijuana [email or web address] Information not available 07/14/2022 How Much Tobacco Do You Smoke? 0.25 PPD [email or web address] Information not available 07/14/2022 Have You Recently Traveled Abroad? No Information not available 07/14/2022 Sex: Unknown Functional Status Question Answer Note LastModified by Organizat ion Details LastModified Time Do you use any illicit or recreational drugs? Yes [email or web address] Information not available 07/14/2022 What is your level of alcohol consumption? None [email or web address] Information not available 07/14/2022 Mental Status None recorded. Family History Relationship Description Onset Age of this Age Resolved Age Notes LastModified by Organization Details LastModified Time Mother Multiple myeloma Not available 2022 10:25:30 Unspecified Relation Malignant neoplastic disease [email or web address] Not available 2022 10:25:37 Unspecified Relation Depressive disorder [email or web address] Not available 2022 10:25:44 Unspecified Relation Bipolar disorder [email or web address] Not available 2022 10:25:51 Unspecified Relation Autistic disorder [email or web address] Not available 2022 10:25:58 Medical History No medical history recorded. Gynecological HistoryNo gynecological history recorded. Obstetrics History GPAL:G 0 P 0 0 0 0 Past Encounters Encounter ID Performer Location Encounter Start Date Encounter Closed Date Diagnosis/Indication Diagnosis SNOMED-CT Code Diagnosis ICD10 Code Diagnosis IMO Codes Diagnosis Note [id number] [facility] [address] [address] [place] [address] 12/24/2019 18:55:34 12/24/2019 19:52:57 [id number] Momo Rocha NP [address] [address] [place] [address] 07/14/2022 08:26:42 07/14/2022 11:03:36 Lumbago with sciatica [id number] M54.42 Health Concerns Section Related Observation LastModified by Organization Detai ls LastModified Time None Recorded Concern Status LastModified by Organization Details LastModified Time None Recorded Advance Directives Directive None Recorded Payers Insurance Date Sequence Insurance Name Policy Number Policy Izquierdo Covered Member ID Izquierdo Member ID Guarantor Name 07/20/2022 1 [place] [facility] Sravanthi Erickson [id number] Sravanthi Bravo 07/21/2022 1 [facility] (MEDICAID HMO) [id number] Sravanthi Garciaandreatracie [id number] Sravanthi Bravo 07/21/2022 1 [facility] (MEDICAID REPLACEMENT - HMO) [id number] Sravanthi Garciaandreatrcaie [id number] 1 Sravanthi Bravo Notes Date Note Type [...] Rocha NP [address] [place], [address], [place] - [facility] 07/14/2022 11:01:37 OBGyn Episode No OBEpisode recorded.
[2025-06-03 03:33] LABS: MANUAL DIFF FLAG NO
[2025-06-03 03:54] LABS: IDNOW Serial# 08D9AD1C; Influenza B2 Negative (Negative)
[2025-06-03 03:55] LABS: COVID-19 Test Negative (Negative); IDNOW Serial# 6674DD1D
[2025-06-03 04:06] VITALS: BP 128/85; PULSE 76; RESP 12; O2SAT 97
[2025-06-03 04:18] LABS: Anion Gap 14 (12-20); Blood Urea Nitrogen 11 mg/dL (9-16); Calcium 9.3 mg/dL (8.4-10.2); Carbon Dioxide 21 mmol/L (22-29); Chloride 110 mmol/L (96-108); Creatinine Clr Calc Pharmacy 173.1; Estimated Glomerular Filt Rate > 60; Potassium 4.1 mmol/L (3.3-5.1); Sodium 141 mmol/L (135-145)
[2025-06-03 04:19] LABS: Alanine Aminotransferase 23 U/L (0-31); Albumin Level 4.6 g/dL (3.5-5.0); Alkaline Phosphatase 49 U/L (39-117); Aspartate Amino Transferase 18 U/L (5-31); Lipase 51 U/L (8-78); Total Protein 7.1 g/dL (6.5-8.0)
[2025-06-03 04:24] LABS: Troponin-I High Sensitivity < 2.7 ng/L (<3.5-17.0)
[2025-06-03 05:48] VITALS: BP 114/64; PULSE 61; RESP 12; TEMP 36.3; O2SAT 98
[2025-06-03 05:50] LABS: Hematocrit 41.5 % (37.0-47.0); Hemoglobin 13.5 g/dl (12.0-16.0); Imm Gran Abs Auto 0.02 X10*3/uL (0.00-0.03); Imm Gran Pct Auto 0.2 % (0.0-0.4); Lymphocytes Absolute Auto 1.6 X10*3/uL (1.2-4.9); Mean Corpuscular HGB Conc 32.5 g/dl (31.0-35.0); Mean Corpuscular Hemoglobin 28.0 pg (27.0-33.0); Mean Corpuscular Volume 86.1 fL (80.0-98.0); NRBC Abs Auto 0.000 X10*3/uL (0.0-0.012); NRBC Pct Auto 0.0 /100WBC (0.0-0.2); Platelet Count 228 X10*3/uL (160-400); Red Blood Count 4.82 X10*6/uL (4.20-5.50); White Blood Count 8.1 X10*3/uL (4.8-10.8)
--- NOTE | 2025-06-03 06:53 | ED_ITS ---
HPI - Chest Pain General Chief Complaint: Chest Pain Stated Complaint: chest pain Time Seen by Provider: 06/03/25 06:53 History of Present Illness ED Provider: Aria BETTENCOURT narrative: The patient is a 35-year-old woman who says that she has no known significant past medical history. She says that she was sleeping yesterday evening in anticipation of her overnight shift at [employer]. She works from midnight to noon. She says that at around 22:00 she was awoken from sleep by a squeezing like discomfort in her chest. This discomfort continued and bothered her but ultimately she got up and went to work. After she got to work pain continued. It was worse with heavy lifting. She also developed some upper abdominal discomfort and nausea. 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 After arriving here in the emergency room she had vomiting at triage. At the time that I saw the patient she has been waiting for approximately 4 hours. She was feeling hungry and requesting something to eat at the time that I spoke to her. No pain or swelling in her legs. She has never had a similar episode. The pain was not pleuritic in nature. Related Data Previous Rx's ?Medication ?Instructions ?Recorded cyclobenzaprine 10 mg tablet 10 mg PO TID PRN muscle s pasm #10 05/11/25 tabs prednisone 10 mg tablet See Rx Instructions .Route 1 07/11/24 .COMPLEX #15 tabs famotidine 40 mg tablet 40 mg PO DAILY #30 tabs / sucralfate 100 mg/mL oral 10 ml PO QID PRN upper abdo leland 06/03/25 suspension pain #420 mL Allergies Allergy/AdvReac Type Severity Reaction Status Date / Time No Known Allergies (No Known Allergy Verified 06/03/25 02:57 Allergies*) Review of Systems 2 Review of Systems: Yes all other systems are reviewed and are negative [facility] Social History Social History Substance Use Type: Marijuana Physical Exam 2 Vital Signs: Vital Signs: Last Vital Signs Temp 97.6 F 06/03/25 09:39 Pulse 57 06/03/25 09:39 Resp 12 06/03/25 09:39 BP 125/75 06/03/25 09:39 Pulse Ox 99 06/03/25 09:39 O2 Del Method Room Air 06/03/25 09:39 BMI result Body Mass Index 37.5 Const: Other: The patient is awake, alert, pleasant, cooperative. She did not seem in obvious distress. Orientation/consciousness: patient oriented x3 HEENT: Other: The face is symmetrical. Mucous membranes moist. Eyes: Other: Pupils are round equal, conjunctivae are clear, extraocular movements intact Neck: Neck: Yes normal visual inspection and Yes full ROM Resp: Effort & Inspection: normal respiratory effort Auscultation: clear to auscultation bilaterally Cardio: Rate: regular rate Rhythm: regular rhythm Heart sounds: S1 normal heart sound present and S2 normal heart sound present GI: Other: The patient has tenderness across her upper abdomen, primarily in the epigastrium and the right upper quadrant. Skin: Other: The skin is dry and unremarkable Neuro: General: patient oriented x3, gait normal, tone normal, moves all extremities, no focal motor deficits and CN's II-XI intact bilaterally Extrem: Other: There is no calf swelling or tenderness. No asymmetry. No peripheral edema. Medications Administered Discontinued Medications Generic Name Dose Route Start Last Admin Trade Name Freq PRN Reason Stop Dose Admin Ondansetron HCl 4 mg 06/03/25 07:11 06/03/25 07:24 Ondansetron Odt 4 Mg Tab.Rapdis TRANSLINGU 06/03/25 07:12 4 mg ONCE ONE Administration Sucralfate 1 gm 06/03/25 09:12 06/03/25 09:19 Sucralfate Oral Suspension 1 Gm/10 Ml Oral.Susp PO 06/03/25 09:13 1 gm ONCE ONE Administration Medical Decision Making Medical Decision Making [facility] Narrative: The patient is a 35-year-old woman who was not on any medications who presents for evaluation of squeezing central chest discomfort which has seemed to be associated with upper abdominal pain, nausea, and vomiting. Clinically the patient does not appear obviously ill. She is PERC negative. Chest x-ray is clear. EKGs unremarkable. My suspicion for an acute coronary syndrome or a pulmonary embolism in his the patient is extremely low. Biliary colic could potentially cause the constellation of symptoms that she describes. An ultrasound of the gallbladder was done that shows no gallstones. Overall the patient did not appear to be remarkably ill and her vital signs were normal. She has a normal CBC and an unremarkable metabolic panel. It is possible this episode of discomfort could be gastritis. She will be discharged with a prescriptions for famotidine and sucralfate. She has a new PCP appointment next month at the [facility] in [place]. She is encouraged to keep this appointment. Lab Data 06/03/25 03:09 06/03/25 03:09 Labs: Lab Results 06/03/25 06/03/25 Range/Units 03:09 03:10 WBC 8.1 (4.8-10.8) X10*3/uL RBC 4.82 (4.20-5.50) X10*6/uL Hgb 13.5 (12.0-16.0) g/dl Hct 41.5 (37.0-47.0) % MCV 86.1 (80.0-98.0) fL MCH 28.0 (27.0-33.0) pg MCHC 32.5 (31.0-35.0) g/dl RDW 13.1 (11.0-16.0) % Plt Count 228 (160-400) X10*3/uL MPV 11.4 (9.4-12.3) fL Immature Gran % (Auto) 0.2 (0.0-0.4) % Neut % (Auto) 68.1 (45-73) % Lymph % (Auto) 20.1 (20-40) % Panola % (Auto) 8.4 (2-11) % Eos % (Auto) 2.5 (0-4) % Baso % (Auto) 0.7 (0-2) % Lymph # (Auto) 1.6 (1.2-4.9) X10*3/uL [place]ola # (Auto) 0.7 (0.1-1.2) X10*3/uL Eos # (Auto) 0.2 (0.0-0.4) X10*3/uL Baso # (Auto) 0.1 (0.0-0.2) X10*3/uL Abs Immat Gran (auto) 0.02 (0.00-0.03) X10*3/uL Absolute Neuts (auto) 5.5 (2.0-8.3) x10*3/uL Absolute Nucleated RBC 0.000 (0.0-0.012) X10*3/uL Nucleated RBC % (auto) 0.0 (0.0-0.2) /100WBC Sodium 141 (135-145) mmol/L Potassium 4.1 (3.3-5.1) mmol/L Chloride 110 H (96-108) mmol/L Carbon Dioxide 21 L (22-29) mmol/L Anion Gap 14 (12-20) BUN 11 (9-16) mg/dL Creatinine 0.66 (0.5-1.4) mg/dL Estim Creat Clear Calc 173.1 Estimated GFR > 60 Random Glucose 91 (60-115) mg/dL Calcium 9.3 (8.4-10.2) mg/dL Total Bilirubin 0.4 (0.0-1.0) mg/dL AST 18 (5-31) U/L ALT 23 (0-31) U/L Alkaline Phosphatase 49 (39-117) U/L Troponin I High Sens < 2.7 (<3.5-17.0) ng/L Total Protein 7.1 (6.5-8.0) g/dL Albumin 4.6 (3.5-5.0) g/dL Lipase 51 (8-78) U/L Beta HCG, Quant < 2 mIU/mL COVID-19 (DHARA) Negative (Negative) COVID-19 Clin Com See Note Influenza Type A (JAYA) Negative (Negative) Influenza Type B (JAYA) Negative (Negative) Influenza A & B Note See Note Independent Interpretation I performed an independent interpretation of an: EKG Interpretation: EKG at 02:49 shows normal sinus rhythm at 85 beats per minute. No definite acute ischemic changes. Discharge Plan Discharge Clinical Impression: Chest pain, Acute epigastric pain Patient Disposition: Home, Self-Care Additional Instructions: I think that your symptoms may have been related to a stomach acid problem. I have sent a prescription for a medication called famotidine that you may take once a day. This medication helps reduce stomach acid production. Additionally I have sent a medication called sucralfate to your pharmacy. This is a medication you may use only when necessary. Use this medication on an as-needed basis for your discomfort. You may take it up to 4 times a day as needed. Please keep your appointment with your new regular doctor's office next month and discuss these symptoms further. Return to the emergency room if significantly worse. Prescriptions: New famotidine 40 mg tablet 40 mg PO DAILY Qty: 30 0RF sucralfate 100 mg/mL suspension 10 ml PO QID PRN (Reason: upper abdominal pain) Qty: 420 0RF No Action prednisone 10 mg tablet See Rx Instructions .ROUTE .COMPLEX Qty: 15 0RF Rx Instructions: 50mg (5 tabs) x1 day, then 40 mg (4 tabs) x1 day, then 30 mg (3 tabs) x1 day, then 20 mg (2 tabs) times 1 day, then 10 mg (1 tab) x1 day cyclobenzaprine 10 mg tablet 10 mg PO TID PRN (Reason: muscle spasm) Qty: 10 0RF Referrals: [facility] [Provider Group] Stand Alone Forms: Work/School Release Interventions: ED Discharge Assessment Last Done: 06/03/25 09:39 Discharge Date/Time: 06/03/25 09:49 Print Language: Montserratian
[2025-06-03 07:04] VITALS: BP 105/64; PULSE 57; RESP 19; TEMP 36.4; O2SAT 98
--- NOTE | 2025-06-03 07:31 | PC.NURSE ---
Assumed care of patient at 0700. Patient resting in bed, stating chest pain as 5/10. VSS on monitor, respirations even and unlabored. Meds given per AUG.
[2025-06-03 08:40] VITALS: BP 108/52; PULSE 57; RESP 16; O2SAT 100
[2025-06-03] MEDS: Sucralfate Oral Suspension 1 GM/10 ML ORAL.SUSP PO (09:19)
[2025-06-03 09:39] VITALS: BP 125/75; PULSE 57; RESP 12; TEMP 36.4; O2SAT 99
== END 2025-06-03 09:49 | disposition home or self-care (01) ==
PROVIDERS: Emergency Provider Emergency Medicine
DX: R07.9 Chest pain, unspecified (principal); R10.13 Epigastric pain; R10.10 Upper abdominal pain, unspecified; Z03.818 Encounter for observation for suspected exposure to other biological agents ruled out; R11.10 Vomiting, unspecified
CPT/HCPCS: 71045; 76705; 80053; 83690; 84484; 84702; 85025; 87502; 87635; 93005; 99284; 99285

== ENCOUNTER → 2025-06-03 02:49 | Outpatient (BNV) | payer OTHER, SELFPAY | PROVIDERS: Emergency Provider Emergency Medicine; Visit Provider Internal Medicine Cardiovascular Disease | DX: R07.9 Chest pain, unspecified (principal) | CPT/HCPCS: 93010 ==

== ENCOUNTER → 2025-06-03 03:21 | Outpatient (BNV) | payer OTHER, SELFPAY | PROVIDERS: Emergency Provider Emergency Medicine; Visit Provider Radiology Vascular & Interventional Radiology | DX: R10.10 Upper abdominal pain, unspecified (principal); R07.9 Chest pain, unspecified | CPT/HCPCS: 71045; 76705 ==